=== PATIENT | female | born 1960 | race Asian ===

== ENCOUNTER 2019-06-04 12:39 | Emergency (ER) | payer BC, SELFPAY ==
--- NOTE | 2019-06-04 12:50 | ED.EAR ---
HPI - Ear Problem General Chief complaint: Ear Stated complaint: Ear Pain Source: patient and RN notes reviewed Mode of arrival: ambulatory Limitations: no limitations Related Data Home Medications Medication Instructions Recorded Confirmed cetirizine 10 mg PO DAILY 06/04/19 06/04/19 irbesartan-hydrochlorothiazide 1 tablet PO DAILY 06/04/19 06/04/19 Allergies Allergy/AdvReac Type Severity Reaction Status Date / Time No Known Allergies Allergy Verified 06/04/19 13:04 Review of Systems Review of Systems: Narrative: CONSTITUTIONAL: Denies malaise, chills, sweats, or fever. EYES: Denies visual changes, redness, or discharge. ENT: Denies rhinorrhea, congestion, sinus pain, otalgia or sore throat. CARDIOVASCULAR: Denies chest pain, palpitations, or edema. RESPIRATORY: Denies cough or dyspnea. GASTROINTESTINAL: Denies abdominal pain, nausea, vomiting, diarrhea, bloody, or mucous stools. GENITOURINARY: Denies dysuria or hematuria. SKIN: Denies rash or itching. MUSCULOSKELETAL: Denies back pain, joint pain, or myalgia. NEUROLOGIC: Denies numbness, weakness, or headache. PSYCHIATRIC: Denies anxiety or depression. All systems reviewed & are unremarkable except as noted in HPI and below PMFSH Comments At time of signature, agree with nursing past medical, surgical, social and family history. There is no relevant family history pertinent to the presenting complaint Exam Narrative: Exam Narrative: GENERAL: Well-appearing, well-nourished, and in no acute distress. HEAD: Normocephalic EYES: PERRLA, conjunctivae clear ENT: Nares clear, turbinates edematous and erythematous, clear discharge. Mucous membranes moist. TM pearly randall with dull light reflex bilaterally; no tragal tenderness. Oropharynx erythematous without lesions. Tonsils enlarged and without exudate, no drooling, no hoarseness, no trismus, uvula midline. NECK: Supple. No lymphadenopathy CHEST: Clear to auscultation, breath sounds equal. No wheezing, rhonchi, rales, or stridor. No respiratory distress, speaks in full sentences. HEART: Regular rate and rhythm. No murmur heard. SKIN: Warm, dry, no rash. NEURO: Alert and oriented x3. PSYCH: Normal mood and affect Course Course Emergency Course: Patient is aware of diagnosis, understands and agrees to treatment plan. Anticipatory guidance given. Patient agrees to follow-up as directed and is aware of reasons to seek care at the emergency department. Portions of this record may have been created with voice recognition software Vital Signs Vital signs: Reviewed. Medical Decision Making MDM Narrative Medical decision making narrative: Differential diagnosis considered: Strep pharyngitis, allergic rhinitis, upper respiratory tract infection, sinusitis, rhinosinusitis, nasopharyngitis. viral pharyngitis, otitis media, otitis externa, pneumonia, bronchitis, viral cough syndrome, viral syndrome, and influenza. Exam findings show no acute concerns or changes; patient is non-toxic appearing and is in no distress. Patient is appropriate for outpatient treatment and follow-up. Critical Care Time Critical Care Time Critical Care Time: No Discharge Plan Discharge Clinical Impression: Skin growth Patient Disposition: Home, Self-Care Condition: Stable Instructions: Bacitracin (On the skin) Additional Instructions: Wash area with soap and water daily. Apply prescribed ointment twice daily. Do not touch or pick at the area. The wound is not infected at this time and you do not need an antibiotic pill. If the area does not improve in the next 1 to 2 weeks, make an appointment with your primary care doctor who can reevaluate it. Prescriptions: New bacitracin zinc [Antibiotic (bacitracin zinc)] 500 unit/gram ointment 1 applic TOPICAL Q12H 7 Days Qty: 15 RF: 0 No Action irbesartan-hydrochlorothiazide 150-12.5 mg Tablet 1 tablet PO DAILY RF: 0 cetirizine 10 mg Tablet 10 mg PO DAILY RF: 0 Foll
[2019-06-04 13:04] VITALS: BP 134/81; PULSE 100; RESP 20; TEMP 37.7; O2SAT 100
--- NOTE | 2019-06-04 13:17 | ED.SKABFB ---
HPI - Skin/Abscess/Foreign Bdy General Chief complaint: Ear Stated complaint: Ear Pain Time Seen by Provider: 06/04/19 13:03 Source: patient and RN notes reviewed Mode of arrival: ambulatory Limitations: no limitations History of Present Illness HPI narrative: 58-year-old female presents with concern for wound on the back of her right ear. Reports she notices 6 days ago. Denies drainage. Reports she has been picking at it . Denies ear pain, rash, fever, malaise. complaint: lesion Related Data Home Medications Medication Instructions Recorded Confirmed cetirizine 10 mg PO DAILY 06/04/19 06/04/19 irbesartan-hydrochlorothiazide 1 tablet PO DAILY 06/04/19 06/04/19 Allergies Allergy/AdvReac Type Severity Reaction Status Date / Time No Known Allergies Allergy Verified 06/04/19 13:04 Review of Systems Review of Systems: Narrative: CONSTITUTIONAL: Denies malaise, chills, sweats, or fever. ENT: Denies rhinorrhea, congestion, sinus pain, otalgia or sore throat. RESPIRATORY: Denies cough or dyspnea. SKIN: Denies rash or itching. Reports wound behind right ear MUSCULOSKELETAL: Denies myalgia. NEUROLOGIC: Denies headache. All systems reviewed & are unremarkable except as noted in HPI and below PMFSH Comments At time of signature, agree with nursing past medical, surgical, social and family history. There is no relevant family history pertinent to the presenting complaint Exam Narrative: Exam Narrative: GENERAL: Well-appearing, well-nourished, and in no acute distress. HEAD: Normocephalic, atraumatic. EYES: PERRLA, conjunctivae clear ENT: Nares clear. Mucous membranes moist. TM pearly randall with sharp light reflex bilaterally; no tragal tenderness. Oropharynx without erythema or lesions. Tonsils not enlarged and without exudate. NECK: Supple. No lymphadenopathy. CHEST: No respiratory distress. Clear to auscultation. No bony deformities, no asymmetry. Speaks in full sentences. HEART: Regular rate and rhythm. No murmur heard. SKIN: Warm, dry, no rash. 0.75 centimeter papule with scab center, no surrounding erythema, edema, induration, fluctuation noted in the crease behind the right ear NEURO: Alert and oriented x3. PSYCH: Normal mood and affect Course Course Emergency Course: Patient is aware of diagnosis, understands and agrees to treatment plan. Anticipatory guidance given. Patient agrees to follow-up as directed and is aware of reasons to seek care at the emergency department. Portions of this record may have been created with voice recognition software Vital Signs Vital signs: Vital Signs Temperature 99.9 F H 06/04/19 13:04 Pulse Rate 100 06/04/19 13:04 Respiratory Rate 20 06/04/19 13:04 Blood Pressure 134/81 06/04/19 13:04 Pulse Oximetry 100 06/04/19 13:04 Temperature 99.9 F H 06/04/19 13:04 Pulse Rate 100 06/04/19 13:04 Respiratory Rate 20 06/04/19 13:04 Blood Pressure 134/81 06/04/19 13:04 Pulse Oximetry 100 06/04/19 13:04 Reviewed. Patient has history of hypertension MDM - Skin/Abscess/Foreign Bdy MDM Narrative Medical decision making narrative: Exam findings show no acute concerns or changes; patient is non-toxic appearing and is in no distress. Patient is appropriate for outpatient treatment and follow-up. Differential Diagnosis Differential diagnosis: Likely abscess of skin or subcutaneous tissue, insect bites, impetigo and contact dermatitis Critical Care Time Critical Care Time Critical Care Time: No Discharge Plan Discharge Clinical Impression: Skin growth Patient Disposition: Home, Self-Care Condition: Stable Instructions: Bacitracin (On the skin) Additional Instructions: Wash area with soap and water daily. Apply prescribed ointment twice daily. Do not touch or pick at the area. The wound is not infected at this time and you do not need an antibiotic pill. If the area does not improve in the next 1 to 2 weeks, make an appointment with
== END 2019-06-04 13:20 | disposition home or self-care (01) ==
PROVIDERS: Emergency Provider Nurse Practitioner; PCP Emergency Medicine
DX: D49.2 Neoplasm of unspecified behavior of bone, soft tissue, and skin (principal); I10 Essential (primary) hypertension
CPT/HCPCS: 99203; G0463

== ENCOUNTER 2019-06-21 12:39 | Emergency (ER) | payer BC, SELFPAY ==
[2019-06-21 12:53] VITALS: BP 141/75; PULSE 100; RESP 18; TEMP 36.8; O2SAT 100
--- NOTE | 2019-06-21 12:53 | ED.SKABFB ---
HPI - Skin/Abscess/Foreign Bdy General Chief complaint: Skin/Abscess/Foreign Body Stated complaint: rash History of Present Illness HPI narrative: This is a 58 year old female that comes in complaining of a rash that has been going on for the past 5 days on bilateral forearm. Patient denies any shortness of breath. Patient states that the hydrocortisone cream and zyretec is not helping. Patient states she needs something else to help with the symptoms. Related Data Home Medications Medication Instructions Recorded Confirmed cetirizine mg 06/21/19 irbesartan-hydrochlorothiazide tablet 06/21/19 omeprazole 06/21/19 Allergies Allergy/AdvReac Type Severity Reaction Status Date / Time No Known Allergies Allergy Unverified 10/17/18 10:37 Review of Systems Review of Systems: Narrative: CONSTITUTIONAL: Denies fever, chills, or sweats. EYES: Denies visual changes, redness, or discharge. ENT: Denies rhinorrhea, congestion, sore throat, or otalgia. CARDIOVASCULAR:Denies chest pain, palpitations, or edema. RESPIRATORY: Denies cough or dyspnea. GASTROINTESTINAL: Denies abdominal pain, nausea, vomiting, or diarrhea. GENITOURINARY: Denies dysuria or hematuria. SKIN: Reports rash or itching. MUSCULOSKELETAL:Denies back pain, joint pain, or myalgia. NEUROLOGIC: Denies headache, numbness, or weakness. PSYCHIATRIC:Denies anxiety or depression PMFSH Family History Family History (Updated 11/28/17 @ 13:24 by DOCTOR UNKNOWN) Mother Patient's mother is , Onset Age: 76 Father Cerebrovascular accident, Onset Age: 76 Social History Social History Smoking status: Never smoker Alcohol intake: current Comments At time as signature, I have reviewed and agree with nursing past medical, social, surgical and family history. Please see nursing chart for further information. There is no relevant family history pertinent to the presenting complaint. Exam Narrative: Exam Narrative: GENERAL:Well-appearing, well-nourished, and in no acute distress. HEAD:Normocephalic, atraumatic. EYES: PERRLA and EOMI. ENT: Nares clear, no rhinorrhea or epistaxis. Mucous membranes moist. NECK: Supple. CHEST: Clear to auscultation. No respiratory distress. HEART: Regular rate and rhythm. No murmur heard. Normal peripheral pulses. ABDOMEN: Soft, nontender, nondistended, normal active bowel sounds. EXTREMITIES: Normal range of motion. No edema. bilateral arms with erythema and raised urticaria and warm to touch several scratches SKIN: Warm, dry, no rash. NEURO: No focal deficits. Alert and oriented x3. Course Vital Signs Vital signs: Vital Signs Temperature 98.2 F 06/21/19 12:53 Pulse Rate 100 06/21/19 12:53 Respiratory Rate 18 06/21/19 12:53 Blood Pressure 141/75 H 06/21/19 12:53 Pulse Oximetry 100 06/21/19 12:53 Temperature 98.2 F 06/21/19 12:53 Pulse Rate 100 06/21/19 12:53 Respiratory Rate 18 06/21/19 12:53 Blood Pressure 141/75 H 06/21/19 12:53 Pulse Oximetry 100 06/21/19 12:53 MDM - Skin/Abscess/Foreign Bdy Differential Diagnosis Differential diagnosis: Likely abscess of skin or subcutaneous tissue, viral exanthem, urticaria, allergic reaction to drug, cellulitis and contact dermatitis Discharge Plan Discharge Clinical Impression: Urticaria Contact dermatitis Qualifiers: Contact dermatitis type: unspecified Contact dermatitis trigger: unspecified trigger Qualified Code(s): L25.9 - Unspecified contact dermatitis, unspecified cause Patient Disposition: Home, Self-Care Condition: Stable Instructions: Antibiotic Form, Contact Dermatitis (DC) Additional Instructions: Use skin creams/lotion, such as those containing calamine or pramoxine to reduce itchiness Avoid scratching when possible to prevent worsening of the condition and disruption of the skin that could lead to bacterial infection To relieve itching, place a cool washcloth or some ice ove
--- NOTE | 2019-06-21 13:17 | PC.NURSE ---
aware of awaiting dc packet.
--- NOTE | 2019-06-21 13:38 | PC.NURSE ---
per registration, another chart exist with pt information, all charts will be combined per registration.
== END 2019-06-21 13:22 | disposition home or self-care (01) ==
PROVIDERS: Emergency Provider Nurse Practitioner Family; PCP Emergency Medicine
DX: L50.9 Urticaria, unspecified (principal); L25.9 Unspecified contact dermatitis, unspecified cause
CPT/HCPCS: 99213; G0463

== ENCOUNTER 2019-06-22 08:41 | Emergency (ER) | payer BC, SELFPAY ==
--- NOTE | 2019-06-22 08:47 | ED.GENADULT ---
HPI - General Adult General Chief complaint: Skin/Abscess/Foreign Body Stated complaint: Rash Time Seen by Provider: 06/22/19 08:47 Source: patient Mode of arrival: ambulatory Limitations: no limitations History of Present Illness HPI narrative: Patient is a 58-year-old female who presents for evaluation of bilateral hand rash. Patient reports she has had itching, rash to both hands where she has been wearing latex gloves. 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 Patient states she has a history of allergic reaction to gloves like this in the past. Patient denies any fever, chills, nausea, vomiting or shortness of breath. She reports the rash has been itching, the left hand has been bleeding and weeping fluid. No purulent discharge. Patient with a history of seasonal allergies, hypertension. Patient was seen yesterday at an urgent care prescribed triamcinolone cream and has not had any improvement in the rash. Per chart review, patient has a history of numerous bouts of contact dermatitis in the past. Related Data Home Medications Medication Instructions Recorded Confirmed cetirizine mg 06/21/19 irbesartan-hydrochlorothiazide tablet 06/21/19 omeprazole 06/21/19 Allergies Allergy/AdvReac Type Severity Reaction Status Date / Time No Known Allergies Allergy Unverified 06/22/19 08:53 Review of Systems Review of Systems: Narrative: CONSTITUTIONAL: Denies fever, chills, or sweats. ENT: Denies rhinorrhea, congestion, sore throat, or otalgia. CARDIOVASCULAR: Denies chest pain. RESPIRATORY: Denies cough or dyspnea. No wheezing. GASTROINTESTINAL: Denies abdominal pain, nausea, vomiting, or diarrhea. GENITOURINARY: Denies dysuria or hematuria. SKIN: Reports itching rash to bilateral hands MUSCULOSKELETAL: Denies back pain, joint pain, or myalgia. NEUROLOGIC: Denies headache, numbness, or weakness. [facility] Past Medical History Medical History (Updated 06/22/19 @ 09:16 by Christine Shaw MD) Hypertension Surgical History Surgical History (Updated 06/22/19 @ 09:07 by Christine Shaw MD) H/O section Family History Family History Mother Patient's mother is , Onset Age: 76 Father Cerebrovascular accident, Onset Age: 76 Social History Social History Smoking status: Never smoker Alcohol intake: current Exam Narrative: Exam Narrative: GENERAL: Awake, alert, conversant HEAD: Normocephalic, atraumatic. EYES: PERRLA and EOMI. ENT: Nares clear, no rhinorrhea or epistaxis. Mucous membranes moist. NECK: Supple. CHEST: No respiratory distress, breathing even and non labored HEART: Regular rate, sinus rhythm ABDOMEN:Non distended, non tender EXTREMITIES: Normal range of motion. No edema. SKIN: Rash and wheals with blistering of the bilateral hands, wrists, and forearms. Erythema and warmth present. Blanches with pressure. No petechiae. NEURO:No focal deficits. Alert and oriented x3 Course Course Emergency Course: Patient presented for evaluation of continued worsening rash. This is likely contact dermatitis given distribution of it. Patient without findings of anaphylaxis, no 2 system involvement, no respiratory symptoms. At this point, I explained via stoker installation mechanic the importance of the patient not using these gloves anymore, as she has had history of bouts of contact dermatitis, patient would benefit from dermatology and allergy follow-up. We will start patient on oral antibiotics for what is likely a secondary infection in the left arm due to the patient itching a wound, as well as oral steroids. Patient was then discharged with PCP and dermatology follow-up. Vital Signs Vital signs: Vital Signs Temperature 36.9 C
[2019-06-22 08:54] VITALS: BP 140/83; PULSE 113; RESP 18; TEMP 36.9; O2SAT 100
[2019-06-22] MEDS: DEXAMETHASONE SOD PHOS INJ 4 MG/ML VIAL 10 MG BY MOUTH (09:27)
== END 2019-06-22 09:50 | disposition home or self-care (01) ==
LOC: ANHED 09:12
PROVIDERS: Emergency Provider Emergency Medicine; PCP Emergency Medicine
DX: L03.119 Cellulitis of unspecified part of limb (principal); L23.1 Allergic contact dermatitis due to adhesives; I10 Essential (primary) hypertension
CPT/HCPCS: 99283; A9270; J1100

== ENCOUNTER 2020-01-13 12:41 | Outpatient (CLI) | payer BC, SELFPAY ==
--- NOTE | ~2020-01-13 | MM_ITS ---
EXAMINATION: MM screening nicole BI w tara HISTORY: Screening mammogram TECHNIQUE: Craniocaudal and mediolateral oblique 3-D tomosynthesis images were obtained and synthetic 2-D images were generated. CAD analysis was submitted and interpreted. COMPARISON: 12/08/2015 BREAST PARENCHYMAL COMPOSITION: The breasts are heterogeneously dense, which may obscure small masses . FINDINGS: There is no evidence of suspicious mass, calcification, or architectural distortion to sugg est malignancy in either breast. There has been no suspicious interval change. IMPRESSION: 1. No mammographic evidence of malignancy. 2. Recommend routine screening mammography in one year. BI-RADS Category 1: Negative Reviewed, dictated and finalized at location A. RIBUTION AGENT
== END 2020-01-13 12:42 | disposition home or self-care (01) ==
LOC: ANHIMG 12:44
PROVIDERS: PCP Emergency Medicine; Visit Provider Emergency Medicine
DX: Z12.31 Encounter for screening mammogram for malignant neoplasm of breast (principal)
CPT/HCPCS: 77063; 77067

== ENCOUNTER 2021-02-04 15:38 | Emergency (ER) | payer OTHER, SELFPAY ==
--- NOTE | 2021-02-04 15:43 | ED.UPPEXIN ---
HPI - Extremity Injury (Upper) General Chief Complaint: Extremity Problem,Nontraumatic Stated Complaint: Lt Thumb Pain Time Seen by Provider: 02/04/21 15:43 Source: patient, family (), RN notes reviewed and old records reviewed Mode of arrival: ambulatory Limitations: no limitations History of Present Illness HPI narrative: 60 yo female presents to the [facility] with complaints of a thorn in the left thumb. Patient states that she was outside when she felt something go into her thumb. Told her she needed to go to the ER. No redness or swelling noted. Tenderness to the side of the thumb. Able to visualize a very small splinter with use of the magnifying glasses Related Data Home Medications Medication Instructions Recorded Confirmed irbesartan-hydrochlorothiazide 1 tablet PO DAILY 02/04/21 02/04/21 Allergies Allergy/AdvReac Type Severity Reaction Status Date / Time No Known Allergies Allergy Verified 02/04/21 15:52 Review of Systems Review of Systems: All systems reviewed & are unremarkable except as noted in HPI and below Constitutional: Constitutional: Reports no additional constitutional complaints, Denies chills and Denies fever(s) Eyes: Eyes: Reports no additional eye complaints ENT: Reports system reviewed and no additional complaints, except as documented Cardiovascular: Cardiovascular: Reports no additional cardiovascular complaints and Denies chest pain Respiratory: Respiratory: Reports no additional respiratory complaints and Denies cough Gastrointestinal: Gastrointestinal: Reports no additional gastrointestinal complaints and Denies abdominal pain Musculoskeletal: Musculoskeletal: Reports no additional musculoskeletal complaints Integumentary/Breasts: Skin/Breast: Reports as per HPI Comments: Splinter left thumb Neurologic: Reports system reviewed and no additional complaints, except as documented Psychiatric: Psychiatric: Reports no additional psychiatric complaints Allergic/Immunologic: Allergic/Immunologic: Reports no additional allergic/immunologic complaints [facility] Past Medical History Medical History Hypertension Surgical History Surgical History H/O section Family History Family History Mother Patient's mother is , Onset Age: 76 Father Cerebrovascular accident, Onset Age: 76 Social History Social History Smoking status: Never smoker Alcohol intake: current Comments At the time of my signature, I reviewed and agree with the nursing past medical, surgical, social, and family history. There is no relevant family history pertinent to the patient complaint. Exam Const: General: healthy appearing, no acute distress and alert Nutritional Appearance: well nourished Orientation/consciousness: patient oriented x3 Limitations: no limitations HENMT: Head: normal to inspection Eyes: Pupils: Equal, round and reactive pupils present Neck: Neck: normal visual inspection Chest: Chest palpation & inspection: normal inspection of the chest Resp: Effort & Inspection: normal respiratory effort Back/Spine/Pelvis: Back: no CVA tenderness Skin: General skin exam: normal color Rashes: no rashes Other: very small splinter noted to the side of the thumb without signs of infection. Neuro: General: patient oriented x3, moves all extremities, no meningeal signs and no focal motor deficits Speech: normal speech Gait exam (Neuro): Normal gait present Extrem: General: normal to inspection and no pedal edema Psych: Appearance: grossly normal and well kempt Mental Status: mental status grossly normal Affect: normal affect Attitude: cooperative Thought content: Yes Normal thought content present Course Course Emergency Course: D
[2021-02-04 15:54] VITALS: BP 144/81; PULSE 101; RESP 18; TEMP 37.3; O2SAT 100
== END 2021-02-04 16:17 | disposition home or self-care (01) ==
PROVIDERS: Emergency Provider Nurse Practitioner; PCP Emergency Medicine
DX: S60.352A Superficial foreign body of left thumb, initial encounter (principal); I10 Essential (primary) hypertension; W45.8XXA Other foreign body or object entering through skin, initial encounter
CPT/HCPCS: 99212; G0463

== ENCOUNTER 2021-02-20 10:01 | Emergency (ER) | payer OTHER, SELFPAY ==
--- NOTE | 2021-02-20 10:07 | ED.FEMALEGU ---
HPI - Female Genitourinary General Chief complaint: Urogenital-Female Stated complaint: uti complaints Time Seen by Provider: 02/20/21 10:15 Source: patient, RN notes reviewed and old records reviewed Mode of arrival: ambulatory Limitations: no limitations History of Present Illness HPI Narrative: 60-year-old female presents to the [facility] with complaints of I have bubbles in my urine. Patient denies pain. Patient denies any back pain, chest pain or abdominal pain. Denies fevers. MD elicited complaint: UTI Related Data Home Medications Medication Instructions Recorded Confirmed irbesartan-hydrochlorothiazide 1 tablet PO DAILY 02/04/21 02/04/21 Allergies Allergy/AdvReac Type Severity Reaction Status Date / Time No Known Allergies Allergy Verified 02/20/21 10:23 Review of Systems Review of Systems: All systems reviewed & are unremarkable except as noted in HPI and below Eyes: Eyes: Reports no additional eye complaints and Reports change in vision ENT: Reports system reviewed and no additional complaints, except as documented Cardiovascular: Cardiovascular: Reports no additional cardiovascular complaints Respiratory: Respiratory: Reports no additional respiratory complaints Gastrointestinal: Gastrointestinal: Reports no additional gastrointestinal complaints, Denies abdominal pain, Denies diarrhea, Denies nausea and Denies vomiting Genitourinary: Genitourinary: Reports as per HPI, Denies nocturia, Reports dysuria, Denies flank pain and Denies urinary incontinence Musculoskeletal: Musculoskeletal: Reports no additional musculoskeletal complaints Integumentary/Breasts: Skin/Breast: Reports system reviewed and no additional complaints, except as docu Neurologic: Reports system reviewed and no additional complaints, except as documented Psychiatric: Psychiatric: Reports no additional psychiatric complaints Allergic/Immunologic: Allergic/Immunologic: Reports no additional allergic/immunologic complaints [facility] Past Medical History Medical History Hypertension Surgical History Surgical History H/O section Family History Family History Mother Patient's mother is , Onset Age: 76 Father Cerebrovascular accident, Onset Age: 76 Social History Social History Smoking status: Never smoker Alcohol intake: current Comments At the time of my signature, I reviewed and agree with the nursing past medical, surgical, social, and family history. There is no relevant family history pertinent to the patient complaint. Exam Const: General: healthy appearing, no acute distress and alert Nutritional Appearance: well nourished Orientation/consciousness: patient oriented x3 Limitations: no limitations HENMT: Head: normal to inspection Eyes: Pupils: Equal, round and reactive pupils present Neck: Neck: normal visual inspection, no lymphadenopathy and no meningeal signs Chest: Chest palpation & inspection: normal inspection of the chest Resp: Effort & Inspection: normal respiratory effort and no use of accessory muscles Auscultation: clear to auscultation bilaterally, no crackles, no rales, no rhonchi and no wheezes Cardio: Rate: regular rate Rhythm: regular rhythm GI: GI Palp: Yes Soft to palpation, No Tenderness to palpation present (GI), No Guarding due to palpation present (GI) and No Rebound tenderness present : General: Yes no CVA tenderness Back/Spine/Pelvis: Back: no CVA tenderness Skin: General skin exam: normal color Rashes: no rashes Wounds: no wounds Neuro: General: patient oriented x3, moves all extremities, no meningeal signs and no focal motor deficits Speech: normal speech Gait exam (Neuro): Normal gait present Extrem: General: normal to ins
[2021-02-20 10:18] VITALS: BP 131/78; PULSE 80; RESP 18; TEMP 36.9; O2SAT 100
== END 2021-02-20 10:32 | disposition home or self-care (01) ==
PROVIDERS: Emergency Provider Nurse Practitioner; PCP Emergency Medicine
DX: R30.0 Dysuria (principal); I10 Essential (primary) hypertension
CPT/HCPCS: 81003; 99212; G0463

== ENCOUNTER 2021-03-03 10:03 | Emergency (ER) | payer OTHER, SELFPAY ==
[2021-03-03 10:24] VITALS: BP 114/64; PULSE 117; RESP 18; TEMP 36.4; O2SAT 100
--- NOTE | 2021-03-03 10:30 | ED.FEMALEGU ---
HPI - Female Genitourinary General Chief complaint: Urogenital-Female Stated complaint: Female Urogenital Time Seen by Provider: 03/03/21 10:30 Source: patient, family and RN notes reviewed Mode of arrival: ambulatory Limitations: no limitations History of Present Illness HPI Narrative: Soren is a 60-year-old female patient who ambulated into the [facility]. She complains of a 3-day history of itching on the skin surrounding her vagina and rectum. Patient states today she has no complaints and no symptoms. She denies any vaginal discharge. She did denies any pain with urination. MD elicited complaint: dysuria Related Data Home Medications Medication Instructions Recorded Confirmed irbesartan-hydrochlorothiazide 1 tablet PO DAILY 02/04/21 03/03/21 Allergies Allergy/AdvReac Type Severity Reaction Status Date / Time No Known Allergies Allergy Verified 03/03/21 10:30 Review of Systems Review of Systems: CONSTITUTIONAL: Denies body aches, fever, chills, or sweats. EYES: Denies visual changes, redness, or discharge. ENT: Denies rhinorrhea, congestion, sore throat, or otalgia. CARDIOVASCULAR: Denies chest pain, palpitations, or edema. RESPIRATORY: Denies cough or dyspnea. GASTROINTESTINAL: Denies abdominal pain, nausea, vomiting, or diarrhea. GENITOURINARY: Denies dysuria or hematuria. SKIN: Denies rash, wounds.+ itching to skin surrounding vagina and rectum MUSCULOSKELETAL: Denies back pain, joint pain, or myalgia. NEUROLOGIC: Denies headache, numbness, tingling, or weakness. PSYCH: Denies depression or anxiety. All systems reviewed & are unremarkable except as noted in HPI and below PMFSH Past Medical History Medical History Hypertension Surgical History Surgical History H/O section Family History Family History Mother Patient's mother is , Onset Age: 76 Father Cerebrovascular accident, Onset Age: 76 Social History Social History Smoking status: Never smoker Alcohol intake: current Comments At time of signature, I have reviewed and agree with nursing past medical, surgical, social and family history unless otherwise noted. Please see nursing chart for further information. There is no relevant family history pertinent to the presenting complaint Exam Narrative: GENERAL: Well-appearing, well-nourished, and in no acute distress. HEAD: Normocephalic, atraumatic. EYES: EOMI. No redness or drainage. Conjunctivae normal. ENT: Mucous membranes pink and moist. Nares clear. No rhinorrhea. TMs normal bilaterally. Throat normal. Uvula midline. NECK: Normal AROM. Supple. No lymphadenopathy. CHEST: No respiratory distress. Clear to auscultation. HEART: Regular rate and rhythm. No murmur appreciated. Normal peripheral pulses. ABDOMEN: Soft, nontender, nondistended, normal active bowel sounds. : No vaginal discharge noted. No erythema surrounding vagina or rectum noticed. Dry skin is noted at top of thighs. MUSCULOSKELETAL: No bony tenderness. EXTREMITIES: Normal range of motion. No edema. SKIN: Warm, dry, no rash. Capillary refill normal. Normal skin turgor. NEURO: No focal deficits. Alert and oriented x3. Gait steady. PSYCH: Normal affect. No signs of depression or anxiety. Course Vital Signs Vital signs: Vital Signs Temperature 36.4 C 03/03/21 10:24 Pulse Rate 117 H 03/03/21 10:24 Respiratory Rate 18 03/03/21 10:24 Blood Pressure 114/64 03/03/21 10:24 Pulse Oximetry 100 03/03/21 10:24 Temperature 36.4 C 03/03/21 10:24 Pulse Rate 117 H 03/03/21 10:24 Respiratory Rate 18 03/03/21 10:24 Blood Pressure 114/64 03/03/21 10:24 Pulse Oximetry 100 03/03/21 10:24 Reviewed. MDM - Female Genitouri
== END 2021-03-03 11:00 | disposition home or self-care (01) ==
PROVIDERS: Emergency Provider Nurse Practitioner Family; PCP Emergency Medicine
DX: L29.2 Pruritus vulvae (principal); I10 Essential (primary) hypertension
CPT/HCPCS: 81003; 99213; G0463

== ENCOUNTER 2021-05-27 10:06 | Emergency (ER) | payer OTHER, SELFPAY ==
[2021-05-27 10:39] VITALS: BP 127/76; PULSE 75; RESP 18; TEMP 36.7; O2SAT 100
--- NOTE | 2021-05-27 10:42 | ED.SKABFB ---
HPI - Skin/Abscess/Foreign Bdy General Chief complaint: Skin/Abscess/Foreign Body Stated complaint: Facial Rash Time Seen by Provider: 05/27/21 10:42 Source: patient Mode of arrival: ambulatory Limitations: no limitations History of Present Illness HPI narrative: Soren Lazar is a 60 yo female with a PMH of HTN and seasonal allergies who comes to express care with light facial rash that started 2 days ago. She is quite concerned rash on her face may be related to the Flonase she started for her allergies by her doctor Related Data Home Medications Medication Instructions Recorded Confirmed irbesartan-hydrochlorothiazide 1 tablet PO DAILY 02/04/21 05/27/21 cetirizine 10 mg PO DAILY 05/27/21 05/27/21 fluticasone propionate 50 mcg INTRANASAL DAILY 05/27/21 05/27/21 Allergies Allergy/AdvReac Type Severity Reaction Status Date / Time No Known Allergies Allergy Verified 05/27/21 10:10 Review of Systems Review of Systems: CONSTITUTIONAL: Denies fever, chills, sweats. EYES: Denies visual changes, redness, discharge. ENT: Denies rhinorrhea, congestion, sore throat, otalgia. CARDIOVASCULAR: Denies chest pain, palpitations, edema. RESPIRATORY: Denies dyspnea, wheezing, cough GASTROINTESTINAL: Denies abdominal pain, nausea, vomiting, diarrhea. GENITOURINARY: Denies dysuria, hematuria, abnormal discharge SKIN: Denies rash or itching. Mild rash on lower part of cheeks NEUROLOGIC: Denies numbness, or focal weakness. PSYCHIATRIC: Denies anxiety or depression. PMFSH Past Medical History Medical History Hypertension Surgical History Surgical History H/O section Family History Family History Mother Patient's mother is , Onset Age: 76 Father Cerebrovascular accident, Onset Age: 76 Social History Social History Smoking status: Never smoker Alcohol intake: current Comments At time of signature, I agree with nursing past medical, surgical, social and family history. There is no relevant family history pertinent to the presenting complaint. Exam Narrative: GENERAL: This is a well-nourished, well-developed patient, in mild distress. HEAD: normocephalic, atraumatic. EYES: Sclera clear/white. Vision is grossly intact. EARS: External ears normal, . Hearing grossly intact. NOSE: External nose normal without nasal discharge, nares without redness, no rhinorrhea. THROAT: Mucous membranes moist, NECK: Neck supple, non-tender CARDIOVASCULAR: Regular rate and rhythm without murmurs, gallops, or rubs. RESPIRATORY: Clear to auscultation. Breath sounds equal bilaterally. No wheezes, rales, or rhonchi. GASTROINTESTINAL: Not done SKIN: warm, intact with light itchy rash on both lower cheeks. looks dry, is pruritic NEURO: awake, alert, and oriented to person, place and time. There were no obvious focal neurologic abnormalities. Steady gait EXTREMITIES: Normal range of motion. BACK: Nontender without deformity Course Course Emergency Course: Bilateral rash on lower cheeks Moisturizer hydrocortisone cream-as patient does not speak [place] very well, directions clearly explained to patient to write down in order on her discharge papers Level of Care: Express Care Visit Vital Signs Vital signs: Vital Signs Temperature 98.0 F 05/27/21 10:39 Pulse Rate 75 05/27/21 10:39 Respiratory Rate 18 05/27/21 10:39 Blood Pressure 127/76 05/27/21 10:39 Pulse Oximetry 100 05/27/21 10:39 Temperature 98.0 F 05/27/21 10:39 Pulse Rate 75 05/27/21 10:39 Respiratory Rate 18 05/27/21 10:39 Blood Pressure 127/76 05/27/21 10:39 Pulse Oximetry 100 05/27/21 10:39 MDM - Skin/Abscess/Foreign Bdy Differential Diagnosis Differential diagnosis: Likel
== END 2021-05-27 11:08 | disposition home or self-care (01) ==
PROVIDERS: Emergency Provider Nurse Practitioner
DX: L24.9 Irritant contact dermatitis, unspecified cause (principal); I10 Essential (primary) hypertension
CPT/HCPCS: 99213; G0463

== ENCOUNTER 2021-08-03 10:46 | Outpatient (CLI) | payer OTHER, SELFPAY ==
--- NOTE | ~2021-08-03 | MM_ITS ---
EXAMINATION: MM screening nicole BI w tara HISTORY: Screening mammogram TECHNIQUE: Craniocaudal and mediolateral oblique 3-D tomosynthesis images were obtained and synthetic 2-D images were generated. CAD analysis was submitted and interpreted. COMPARISON: 01/13/2020 and 12/08/2015 bilateral screening mammogram examinations BREAST PARENCHYMAL COMPOSITION: There are scattered areas of fibroglandular density. FINDINGS: There is no evidence of suspicious mass, calcification, or architectural distortion to sugg est malignancy in either breast. There has been no suspicious interval change. IMPRESSION: 1. No mammographic evidence of malignancy. 2. Recommend routine screening mammography in one year. BI-RADS Category 1: Negative Reviewed, dictated and finalized at location A.
== END 2021-08-03 10:47 | disposition home or self-care (01) ==
PROVIDERS: Visit Provider Emergency Medicine
DX: Z12.31 Encounter for screening mammogram for malignant neoplasm of breast (principal)
CPT/HCPCS: 77063; 77067

== ENCOUNTER 2022-05-22 10:39 | Emergency (ER) | payer OTHER, SELFPAY ==
[2022-05-22 10:48] VITALS: BP 138/77; PULSE 74; RESP 16; TEMP 36.1; O2SAT 100
--- NOTE | 2022-05-22 10:48 | ED.EAR ---
HPI - Ear Problem General Chief complaint: Skin/Abscess/Foreign Body Stated complaint: rt ear lobe pain Time Seen by Provider: 05/22/22 10:51 Source: patient Mode of arrival: ambulatory Limitations: no limitations History of Present Illness HPI Narrative: 61 y/o female presented for c/o intermittent problem to the back of the right ear for several months. States sometimes she has pain and yellow drainage to the site. Denies any symptoms for several days, but wanted to discuss it since she was here for labwork. Denies inner ear complaints, URI symptoms, rash/swelling or any other concerns. Not applying anything to the site. Related Data Home Medications Medication Instructions Recorded Confirmed irbesartan 150 1 tablet PO DAILY 02/04/21 05/22/22 mg-hydrochlorothiazide 12.5 mg tablet cetirizine 10 mg tablet 10 mg PO DAILY 05/27/21 05/22/22 fluticasone propionate 50 50 mcg intranasal DAILY 05/27/21 05/22/22 mcg/actuation nasal spray,suspension omeprazole 20 mg capsule,delayed 20 mg PO DAILY 05/22/22 05/22/22 release Allergies Allergy/AdvReac Type Severity Reaction Status Date / Time No Known Allergies Allergy Verified 05/22/22 10:48 Review of Systems Review of Systems: CONSTITUTIONAL: Denies body aches, fever, chills, or sweats. EYES: Denies visual changes, redness, or discharge. ENT: Denies rhinorrhea, congestion CARDIOVASCULAR: Denies chest pain, palpitations, or edema. RESPIRATORY: Denies cough or dyspnea. GASTROINTESTINAL: Denies abdominal pain, nausea, vomiting, or diarrhea. SKIN: Denies rash or wounds MUSCULOSKELETAL: Denies back pain, joint pain, or myalgia. NEUROLOGIC: Denies headache, numbness, tingling, or weakness. PMFSH Past Medical History Medical History Hypertension Surgical History Surgical History H/O section Family History Family History Mother Patient's mother is , Onset Age: 76 Father Cerebrovascular accident, Onset Age: 76 Social History Social History Smoking status: Never smoker Alcohol intake: current Comments At time of signature, I have reviewed and agree with nursing past medical, surgical, social and family history unless otherwise noted. Please see nursing chart for further information. There is no relevant family history pertinent to the presenting complaint Exam Narrative: GENERAL: Well-appearing HEAD: Normocephalic, atraumatic. EYES: conjunctivae clear, and EOMI. ENT: Mucous membranes moist. Oropharynx without edema, erythema or lesions. External ear appears normal, nontender, no lesions/rash/drainage. TMs with normal light reflex bilaterally. NECK: Supple. No lymphadenopathy CHEST: Clear to auscultation. HEART: Regular rate and rhythm. SKIN: Warm, dry. NEURO: Alert and oriented x3. Course Course Emergency Course: Patient is aware of diagnosis, understands and agrees to treatment plan. Anticipatory guidance given. Patient agrees to follow-up as directed and is aware of reasons to seek care at the emergency department. Portions of this record may have been created with voice recognition software Level of Care: Express Care Visit Vital Signs Vital signs: Reviewed Medical Decision Making [facility] Narrative Medical decision making narrative: Patient reports occasional pain and drainage to the back of the right ear for several months. Has not had symptoms for several days. Exam negative. Advised to monitor site, mupirocin prescribed, recommend taking photo if symptoms return to f/u with pcp. Advised supportive measures and signs/symptoms to go to the ER. Pt is appropriate for outpt treatment and f/u. Differential Diagnosis Differential Diagnosis: dermatitis, mastoid
[2022-05-22 10:50] VITALS: BP 138/77; PULSE 74; RESP 16; TEMP 36.1; O2SAT 100
== END 2022-05-22 11:02 | disposition home or self-care (01) ==
PROVIDERS: Emergency Provider Nurse Practitioner Family; PCP Emergency Medicine
DX: L30.9 Dermatitis, unspecified (principal); I10 Essential (primary) hypertension
CPT/HCPCS: 99213; G0463

== ENCOUNTER 2023-09-25 09:52 | Outpatient (CLI) | payer BC, SELFPAY ==
--- NOTE | ~2023-09-25 | MM_ITS ---
EXAMINATION: MM screening nicole BI w tara HISTORY: Screening TECHNIQUE: Craniocaudal and mediolateral oblique 3-D tomosynthesis images were obtained and synthetic 2-D images were generated. CAD analysis was submitted and interpreted. COMPARISON: Comparison to multiple prior studies sequentially, with oldest reviewed study dated 08/2015. BREAST PARENCHYMAL COMPOSITION: . Dense: The breasts are heterogeneously dense, which may obscure sma ll masses FINDINGS: There is no evidence of suspicious mass, calcification, or architectural distortion to sugg est malignancy in either breast. There has been no suspicious interval change. IMPRESSION: 1. No mammographic evidence of malignancy. 2. Recommend routine screening mammography in one year. BI-RADS Category 1: Negative Reviewed, dictated and finalized at location B.
== END 2023-09-25 09:53 | disposition home or self-care (01) ==
LOC: ANHIMG 09:58
PROVIDERS: PCP Emergency Medicine; Visit Provider Emergency Medicine
DX: Z12.31 Encounter for screening mammogram for malignant neoplasm of breast (principal)
CPT/HCPCS: 77063; 77067